=== PATIENT | male | born 1965 | race Caucasian/White ===

== ENCOUNTER 2025-02-19 17:01 | Emergency (ER) | payer OTHER, SELFPAY ==
[2025-02-19 17:02] VITALS: BP 145/89; PULSE 88; RESP 22; TEMP 37.2; O2SAT 98; BMI 33.5
--- NOTE | 2025-02-19 17:19 | CT_ITS ---
PROCEDURE: CT CHEST, ABD, PELVIS WO CONT 02/19/2025 REASON FOR EXAM: FALL, LEFT RIB PAIN, L FLANK BRUISE TECHNIQUE: CT CHEST, ABD, PELVIS WITHOUT CONTRAST. Coronal and Sagittal reconstruction series were provided. Noncontrast technique limits evaluation of the vasculature, and abdominopelvic viscera. One or more dose reduction techniques were used (e.g., Automated exposure control, adjustment of the mA and/or kV according to patient size, use of iterative reconstruction technique. RADIATION DOSE SUMMARY: DLP: 2286.36 mGycm COMPARISON: None. FINDINGS: Lungs/pleura: Clear. No airspace consolidation or focal contusion. No pneumothorax or pleural effusion. Central airways are patent. Mild bilateral dependent atelectasis. Mediastinum: Unremarkable. No mediastinal hematoma or lymphadenopathy. Heart: Normal in size. No pericardial effusion. Mild coronary artery calcifications. Aorta: Unenhanced abdominal aorta is mildly tortuous but normal in caliber. No aneurysm or evidence of acute injury. Mild atherosclerotic calcifications. Liver: Normal in size. No evidence of acute injury. No suspicious focal lesion. Few scattered benign-appearing circumscribed hypodense lesions, the largest in the lateral right lobe measuring up to 4.4 cm, most likely reflecting benign cysts, versus hemangiomas. Gallbladder: Unremarkable. No biliary ductal dilatation. Spleen: Normal in size. No acute injury. Small medial splenule. Pancreas: No significant abnormality. Adrenals: Unremarkable. Kidneys: Normal in size. No evidence of acute injury. No urolithiasis or hydronephrosis. Bladder: Underdistended, grossly unremarkable. Reproductive Organs: Borderline enlarged prostate. Bowel: No significant abnormality. No evidence of obstruction or active inflammatory process, or hollow viscus injury. Normal appendix. Distal colonic diverticulosis without evidence for active diverticulitis/colitis. Nodular foci with calcification along the descending colon likely sequelae of remote omental infarct or epiploic appendagitis. Peritoneum / Retroperitoneum: No free fluid or air. No focal mesenteric contusion/hematoma. Soft tissues: Prominent amorphous hematoma and subcutaneous contusional changes to the lower left lateral abdominal wall, superficial to the transversus abdominis musculature. No evidence for intramuscular hematoma. Small bilateral fat containing inguinal hernias, and umbilical hernia. Bones: Acute nondisplaced fractures of the anterolateral left 5th-7th ribs. No additional acute fracture or dislocation identified. Mild multilevel degenerative changes of the spine. CT/CT Chest, Abd, Pelvis WO Cont IMPRESSION: Acute nondisplaced fractures of the left anterolateral 5th-7th ribs. No additio nal acute fractures. Moderate amorphous hematoma and subcutaneous contusional changes to the lower left lateral abdominal wall, superficial to the abdominal wall musculature without evidence for intramuscular hematoma. No acute intrathoracic, vascular, or intra-abdominal visceral traumatic injurie s. Reading Location: [id number]
--- NOTE | 2025-02-19 17:33 | EDS_ITS ---
HPI <NENA Garcia - Last Filed: 02/19/25 21:58> History of Present Illness Chief Complaint: Fall Narrative Narrative: Patient presented today with pain to his left lateral ribs and bruising to his left flank after falling off of his horse this afternoon. He was performing [place] [employer] and had a holster tied around his waist with a gun when he lost his balance grabbing for his gun and fell off the horse onto his left side. He reports that the holster hit against his ribs causing the pain. He thinks he may have hit his head against the ground but did have a helmet on, no LOC occurred, he denies any pain to his head or neck. He has had no nausea or vomiting. He is on no blood thinners. PFSH <NENA Garcia - Last Filed: 02/19/25 21:58> [facility] Medical History no medical history Home Medications ?Medication ?Instructions ?Recorded ?Last Taken ?Type oxycodone 5 mg tablet 5 mg PO Q6H PRN pain 3 days #12 02/19/25 Unknown Rx tabs Allergy/AdvReac Type Severity Reaction Status Date / Time Penicillins (PCN) Allergy Intermediate Rash Verified 02/19/25 17:02 Family History no significant family his Surgical History no surgical history Social History Smoking Status: Never smoker ROS <NENA Garcia - Last Filed: 02/19/25 21:58> ROS ED Constitutional Constitutional ED: Denies chills or fever(s) Cardiovascular Cardiovascular: Denies chest pain Respiratory/Chest Respiratory/Chest: Denies dyspnea Gastrointestinal Gastrointestinal: Denies abdominal pain, nausea or vomiting Musculoskeletal Musculoskeletal: Reports arthralgias; Denies back pain or neck pain Integumentary Denies Abrasions Neurologic Neurologic: Denies headache(s) or weakness EXAM <NENA Garcia - Last Filed: 02/19/25 21:58> Physical Exam Const Vital Signs: 02/19/25 17:02 02/19/25 17:20 02/19/25 18:57 Temperature 98.9 F Temperature Source Oral Pulse Rate 88 72 Respiratory Rate 22 H 16 Respiratory Effort Normal Non-Labored Respiratory Depth Normal Respiratory Pattern Normal Blood Pressure 145/89 H 121/70 H Blood Pressure Mean 107 87 Pulse Ox 98 Oxygen Delivery Method Room Air Room Air 02/19/25 21:00 Temperature Temperature Source Pulse Rate 68 Respiratory Rate 14 Respiratory Effort Respiratory Depth Respiratory Pattern Blood Pressure 118/78 Blood Pressure Mean 91 Pulse Ox 98 Oxygen Delivery Method Positive well nourished, well developed and no apparent distress General Appearance ED: well developed HEENT Reports normocephalic and head/scalp atraumatic Mouth ED: Yes moist mucous membranes normal Eyes PERRL and EOMs intact bilaterally Neck full ROM and supple General: Negative for tenderness Chest Wall inspection of chest normal Chest Narrative: Tenderness to the left lateral mid ribs, no crepitus, no overlying bruising to the ribs. Resp normal respiratory effort and clear to auscultation bilaterally Cardio regular rate and regular rhythm GI soft to palpation, non-tender, non-distended and no masses GI Narrative: minimal tenderness to the left lower quadrant of the abdomen/left flank with bruising to the left flank Back/Spine normal ROM and normal to inspection Extremity normal to inspection and full ROM Neuro oriented x3, CN's II-XII intact bilaterally, moves all extremities, no focal motor deficits and no sensory deficits noted Sensorium / Orientation: awake and alert Psych mental status grossly normal and thought process normal Skin no rashes or lesions noted and no wounds <Jasper Mckeon MD - Last Filed: 02/19/25 22:59> Physical Exam Const Vital Signs: 02/19/25 17:02 02/19/25 17:20 02/19/25 18:57 Temperature 98.9 F Temperature Source Oral Pulse Rate 88 72 Respiratory Rate 22 H 16 Respiratory Effort Normal Non-Labored Respiratory Depth Normal Respiratory Pattern Normal Blood Pressure 145/89 H 121/70 H Blood Pressure Mean 107 87 Pulse Ox 98 Oxygen Delivery Method Room Air Room Air 02/19/25 21:00 Temperature Temperature Source Pulse Rate 68 Respiratory Rate 14 Respiratory Effort Respiratory Depth Respiratory Pattern Blood Pressure 118/78 Blood Pressure Mean 91 Pulse Ox 98 Oxygen Delivery Method MDM <NENA Garcia - Last Filed: 02/19/25 21:58> [facility] Narrative Medical decision making narrative: Patient presenting today with pain to his left lateral ribs and bruising to his left flank after he fell off of a horse while he was performing at the [facility]. 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 He reports that he fell off somewhat gently, he was wearing his helmet. He thinks he may have hit his head but denies any pain to his head, LOC, or neck pain. He does have tenderness to his left lateral ribs, no overlying bruising, he does have a large bruise to his left flank. He is on no blood thinners. CT scan of the chest, abdomen, and pelvis will be obtained to assess for rib fractures as well as intra-abdominal injury. He was given IM Toradol here for pain. I did offer to give him opiate analgesia but he declined and reports that he does not tolerate this medication well. He was further medicated with Tylenol. For home he prefers to just take Tylenol and ibuprofen for his pain, I did offer to write him for stronger pain medication. CT scan at this time is still pending, suspect that he likely has a left-sided rib fracture and I will order an incentive spirometer with instructions on how to use this. Disposition pending CT scan read. Radiography Diagnostic Testing: Clinical Impression(s) from Imaging Studies Chest/Abdomen/Pelvis CT 02/19/25 17:19 IMPRESSION: Acute nondisplaced fractures of the left anterolateral 5th-7th ribs. No additional acute fractures. Moderate amorphous hematoma and subcutaneous contusional changes to the lower left lateral abdominal wall, superficial to the abdominal wall musculature without evidence for intramuscular hematoma. No acute intrathoracic, vascular, or intra-abdominal visceral traumatic injuries. Reading Location: [id number] <Jasper Mckeon MD - Last Filed: 02/19/25 22:59> [facility] [place] Radiography Diagnostic Testing: Clinical Impression(s) from Imaging Studies Chest/Abdomen/Pelvis CT 02/19/25 17:19 IMPRESSION: Acute nondisplaced fractures of the left anterolateral 5th-7th ribs. No additional acute fractures. Moderate amorphous hematoma and subcutaneous contusional changes to the lower left lateral abdominal wall, superficial to the abdominal wall musculature without evidence for intramuscular hematoma. No acute intrathoracic, vascular, or intra-abdominal visceral traumatic injuries. Reading Location: [facility] Treatment and Re-Evaluation :: Dr. Mckeon: I have personally performed a face to face assessment of the patient and have reviewed the IAM Note. I performed a substantive portion of the visit including all aspects of the following. My guy findings include: History is fall from horse, left lower lateral abdominal ecchymosis and swell ing, left-sided rib pain. Exam is GCS 15. ABCs intact. Positive tenderness to palpation left lateral ribs more towards midaxillary line. No crepitance. No noted ecchymosis initially. Positive ecchymosis above left hip on abdominal wall, left flank. No rebound or guarding. Medical Decision Making: Differential diagnosis includes but not limited to intra-abdominal hemorrhage versus abdominal wall hematoma versus rib fracture versus contusion. There is considerable delay in the reading of the CT of the chest abdomen and pelvis without contrast. I reviewed the radiology read and there are fractures of ribs 5, 6, and 7 on the left side but no pneumothorax. There is no abdominal wall hematoma but not intramuscular. The patient initially declined stronger pain medications, but given that he has rib fractures and abdominal wall hematoma, he is accepting of them for outpatient use. Although he has 3 rib fractures, I discussed with him transferring to a trauma center for observation but he declined stating he feels well enough to be discharged and would like outpatient treatment. He had concerned because he felt his abdominal wall hematoma was growing in size. It is slightly increased localized swelling, but is not circumferential and he is not distended. There is no sign of internal hemorrhage or visceral organ damage on the CT of the abdomen and pelvis radiology read. Through shared decision making, he will be discharged to use incentive spirometer and narcotic pain medication and follow- up with his primary care provider. Return instructions to the emergency departm ent were reviewed. Disposition is discharged in stable condition. Other additions or changes: [None] Discharge Plan Triage Chief Complaint: Fall ED Midlevel Provider: Gem Desai ED Provider: Jasper Mckeon Dx/Rx/DC Orders Clinical Impression: Fall, Left rib fracture, Contusion of left flank, Hematoma of left flank, Abdominal wall hematoma Instructions: ED Soft Tissue Contusion, ED Rib Fracture, ED Hematoma Prescriptions: New oxycodone 5 mg tablet 5 mg PO Q6H PRN (Reason: pain) 3 Days Qty: 12 0RF Primary Care Provider: Chriss Abdullahi Referrals: Chriss Abdullahi DO [Primary Care Provider] - 5-7 Days Activity Restrictions/Additional Instructions: Follow-up with your PCP and return for any other concerns or worsening symptoms. You can alternate Tylenol and ibuprofen as needed for pain. Use the incentive spirometer 10 times per hour until you can take deep breaths on your own without discomfort. Ice to hematoma and your ribs throughout the day to help with pain and swelling. Return with increased difficulty breathing, sustained high fever, new or worsening symptoms including increased swelling of your abdomen. Print Language: Kiswahili Disposition Disposition: Home, Self Care
[2025-02-19] MEDS: Ketorolac 30 MG/ML Syringe IM (17:58)
[2025-02-19 18:57] VITALS: BP 121/70; PULSE 72; RESP 16
[2025-02-19 21:00] VITALS: BP 118/78; PULSE 68; RESP 14; O2SAT 98
[2025-02-19 23:30] VITALS: BP 118/71; PULSE 67; RESP 16; TEMP 36.6; O2SAT 98
== END 2025-02-19 23:31 | disposition home or self-care (01) ==
PROVIDERS: Emergency Provider Emergency Medicine; Visit Provider Emergency Medicine
DX: S22.42XA Multiple fractures of ribs, left side, initial encounter for closed fracture (principal); S30.1XXA Contusion of abdominal wall, initial encounter; V80.010A Animal-rider injured by fall from or being thrown from horse in noncollision accident, initial encounter; Y93.89 Activity, other specified; Y92.89 Other specified places as the place of occurrence of the external cause
CPT/HCPCS: 71250; 74176; 96372; 99283